=== PATIENT | female | born 1995 | race Caucasian/White ===

== ENCOUNTER 2020-09-11 05:47 | Day surgery (SDC) | payer OTHER, SELFPAY ==
[~2020-09-11] VITALS: Ht 160 cm; Wt 56.7 kg
[2020-09-11] MEDS ORDERED: fentaNYL citrate 0.05 MG/ML VIAL ONE (07:34)
[2020-09-11] MEDS ORDERED: MIDAZOLAM 5 MG/5 ML VIAL ONE ×3 (07:34→07:58)
[2020-09-11] MEDS ORDERED: MIDAZOLAM 2 MG/2 ML VIAL IVP ONE (08:30)
== END 2020-09-11 08:41 | disposition home or self-care (01) ==
LOC: MDS 05:47 → MFCC 06:19 → MDS 08:41
PROVIDERS: ATTEND Internal Medicine Gastroenterology
DX: K22.70 Barrett's esophagus without dysplasia (principal); K21.9 Gastro-esophageal reflux disease without esophagitis; Z88.5 Allergy status to narcotic agent; Z91.040 Latex allergy status; Z79.899 Other long term (current) drug therapy
CPT/HCPCS: 36415; 43239; 81025; 86677; 87426; J2250; J3010

== ENCOUNTER 2022-11-14 10:46 | Day surgery (SDC) | payer OTHER ==
[~2022-11-14] VITALS: Ht 160 cm; Wt 53.1 kg
[2022-11-14] MEDS ORDERED: fentaNYL citrate 0.05 MG/ML VIAL ONE (11:41)
[2022-11-14] MEDS ORDERED: MIDAZOLAM 2 MG/2 ML VIAL ONE (11:41)
[2022-11-14] MEDS ORDERED: MIDAZOLAM 2 MG/2 ML VIAL IVP ONE (12:10)
== END 2022-11-14 12:50 | disposition home or self-care (01) ==
LOC: MDS 10:46 → MMU 10:47 → MDS 12:50
PROVIDERS: ATTEND Internal Medicine Gastroenterology
DX: K21.9 Gastro-esophageal reflux disease without esophagitis (principal); Z20.822 Contact with and (suspected) exposure to COVID-19
CPT/HCPCS: 43235; 87426; J2250; J3010